=== PATIENT | female | born 1970 | race African-American/Black ===

== ENCOUNTER 2018-01-12 17:28 | Emergency (ER) | payer OTHER ==
[2018-01-12 17:47] VITALS: BP 129/43; PULSE 82; TEMP 98.6; BMI 31.5
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
== END 2018-01-12 18:53 | disposition home or self-care (01) ==
LOC: JERFT 17:28
DX: S80.01XA Contusion of right knee, initial encounter (principal); V43.52XA Car driver injured in collision with other type car in traffic accident, initial encounter; Y93.89 Activity, other specified; Y92.410 Unspecified street and highway as the place of occurrence of the external cause
CPT/HCPCS: 99281-25